=== PATIENT | female | born 1985 ===

== ENCOUNTER → 2025-04-22 | Day surgery (SDC) | payer OTHER ==
[~2025-04-22] MED LIST: CEFAZOLIN SODIUM 1,000 MG VIAL ONE; CELEBREX200MG PO; Colace 100MG PO; METHYLERGONOVINE MALEATE 0.2 MG/ML AMPUL ONE; Mylicon 125MG PO; OXYC1TAB9 PO; POVIDONE-IODINE 118 ML BOTT TOP ONE; PRENATE ADVANCE PO
== END | disposition home or self-care (01) ==
LOC: ADM 04-16 11:45 → CIR.AMB 09:48
PROVIDERS: ATTEND Obstetrics & Gynecology
DX: D25.0 Submucous leiomyoma of uterus (principal); N92.0 Excessive and frequent menstruation with regular cycle; N84.0 Polyp of corpus uteri